=== PATIENT | male | born 1965 | race Caucasian/White ===

== ENCOUNTER 2023-09-10 16:53 | Inpatient (IN) | payer BC ==
[2023-09-10] MEDS: APIXABAN 5 MG TABLET PO SCH (20:00)
[2023-09-10] MEDS ORDERED: ACETAMINOPHEN 325 MG TABLET PO PRN (22:56)
[2023-09-10] MEDS: APIXABAN 5 MG TABLET PO ONE (23:00)
[2023-09-11 06:59] LABS: Absolute Basophils 0.1 K/uL (0-0.5); Absolute Eosinophils 0.2 K/uL (0-0.5); Absolute Lymphocytes (CBC) 1.2 K/uL (0.7-4.9); Absolute Monocytes 0.8 K/uL (0.1-1.3); Absolute Neutrophil 6.3 K/uL (1.8-8.0); Basophils % 0.7 % (0-1.3); Eosinophils % 2.1 % (0-4.4); Hematocrit 35.4 % (39.6-49.0); Hemoglobin 11.7 g/dL (13.6-17.9); Lymphocytes % 14.3 % (15.3-44.8); MCH 28.8 pg (27.0-35.0); MCV 87.2 fL (80-100); MPV 7.6 fL (7.6-11.3); Monocytes % 9.4 % (3.3-12.3); Neutrophils % 73.5 % (41.7-73.7); Platelets 381 thou/uL (152-406); RBC Red Blood Cell Count 4.06 M/uL (4.33-5.43); Red Cell Distribution Width 14.9 % (12.1-15.2)
[2023-09-11 07:10] LABS: Albumin 2.3 g/dL (3.4-5.0); Anion Gap 9.2 mEq/L (5.0-15.0); Magnesium 2.4 mg/dL (1.6-2.4); Potassium 4.2 mEq/L (3.5-5.1); Prealbumin 11.2 mg/dL (20-40)
[2023-09-11] MEDS: DULOXETINE 20 MG CAP PO SCH (10:13)
[2023-09-11] MEDS: TAMSULOSIN 0.4 MG SR CAP PO SCH (10:13)
[2023-09-11] MEDS: CYCLOBENZAPRINE 10 MG TAB PO SCH (10:13)
[2023-09-11] MEDS: GABAPENTIN 300 MG CAP PO SCH (10:13)
[2023-09-11 11:06] LABS: Specific Gravity 1.019 (1.005-1.030); Sqamous Epithelial <5 /HPF (None Seen); Urine Bacteria 20-50 /HPF (<20); Urine Bilirubin NEGATIVE (Negative); Urine Blood Trace (Negative); Urine Clarity Extremely Turbid (Clear); Urine Color Yellow (Yellow); Urine Culture Reflex Order REFLEXED; Urine Glucose NEGATIVE (Negative); Urine Ketones NEGATIVE (Negative); Urine Micro Reflex YN NO BILL MICROSCOPIC; Urine Mucus 1+ /HPF (None Seen); Urine Nitrite NEGATIVE (Negative); Urine Protein NEGATIVE (Negative); Urine Urobilinogen Normal (Normal); Urine WBC 20-50 /HPF (<5)
[2023-09-11] MEDS: CIPROFLOXACIN HCL 500 MG TAB PO SCH (13:02)
[2023-09-11] MEDS: metroNIDAZOLE 500 MG TABLET PO SCH (14:14)
[2023-09-11] MEDS: MAGNESIUM HYDROXIDE 8% 30 ML PO PRN (14:17)
--- NOTE | 2023-09-11 14:17 | CON ---
Date of Consultation: 09/11/2023 Reason: Gallbladder abscess. History Of Present Illness: The patient is a 57-year-old gentleman who underwent a laparoscopic chol ecystectomy at [facility] on August 10 following which he had a respiratory failure and workup revealed a s addle pulmonary emboli. He was admitted back to the hospital and on his incidental finding, there wa s a 7 cm fluid collection in the gallbladder fossa. However, clinically in [facility], they did not feel i t was an abscess because the patient was afebrile, asymptomatic. White count was normal. He was ej ated, however, with IV antibiotics. Currently, his only complaint is nausea. He has no abdominal pa in, no vomiting. No diarrhea or constipation. No blood in his stool. No dysuria, hematuria. No so re throat, runny nose, cough, headaches, or dizziness. No chest pain. Review of Systems: Otherwise unremarkable. Past Medical History: Recent history of saddle emboli, respiratory failure, morbid obesity with a BM I of 59, hypertension, and MS. Past Surgical History: Gastric banding, laparoscopic cholecystectomy with IOC. Allergies: INCLUDE AUGMENTIN. Social History: The patient does not smoke. Does not drink alcohol. Family History: Noncontributory. Physical Examination: Vital Signs: Currently, stable. He is afebrile. Heart rate is 106. General: He is awake, alert, oriented x3. Head and Neck: No evidence of icterus. No neck masses. No JVD. Throat clear. Neck is supple. Chest: Clear. Heart: S1, S2. Abdomen: Soft, nondistended, nontender. Positive bowel sounds. Wounds have healed. Extremities: Neurovascularly intact. Neuro: Nonfocal. Imaging: The patient has not had any imaging done at our hospital. His medical records from [facility] we re reviewed that were present in the chart. His white count is normal with no left shift. His chemi stries are essentially unremarkable except for a low albumin and pre-albumin. Assessment: A 57-year-old gentleman with morbid obesity, multiple sclerosis, hypertension, recent pu lmonary embolus with a fluid collection in his gallbladder fossa. Recommendations: I discussed the case with Dr. Vasquez. I think oral antibiotics should suffice. The patient does have some nausea, which can be treated symptomatically. No need for any surgical inter vention at this time. I believe this fluid to be a postop seroma. I do not believe that this is an active infection in the gallbladder fossa at this time as clinically he appears stable from this poin t. Care discussed with Dr. Vasquez. PAIGE/JOLIE Voice ID: [id number] Report ID: [id number]
[2023-09-11] MEDS: BISACODYL 10 MG RECTAL SUPP PR PRN (15:07)
[2023-09-11] MEDS: NA CHLORIDE 0.9% 1,000 ML IV SCH (18:48)
[2023-09-11] MEDS: ZOLPIDEM TARTRATE 5 MG TABLET PO SCH (20:11)
[2023-09-11] MEDS: APIXABAN 5 MG TABLET PO SCH (20:12)
[2023-09-11] MEDS: CRANBERRY FRUIT EXTRACT 200 MG CAP PO SCH (20:13)
[2023-09-11] MEDS ORDERED: ROZEREM 8 MG PO SCH (21:00)
--- NOTE | 2023-09-11 21:49 | P.HP ---
Certification for Inpatient Patient admitted to: Inpatient With expected LOS: >2 Midnights Practitioner: I am a practitioner with admitting privileges, knowledge of patient current condition, hospital course, and medical plan of care. Services: Services provided to patient in accordance with Admission requirements found in Title 42 Section 412.3 of the Code of Federal Regulations Patient History Date of Service: 09/11/23 Reason for admission: rehab admission after complicated GB surery and saddle pulmonary embolism History of Present Illness: Adin is morbidly obese gm with MS who walks with walker. He had gb surgery at [facility], kept weak, fatigued and had epig pain. HE went back to [facility] er. He was found to have 7 cm abscees in the region of GB. He was given IV antibiotics. He was also found to have saddle embolus. He is on Eliquis po bid. He was not on antibiotics but I started him on two oral antibiotics after consultation with Dr. Gtz. He is stable. Allergies amoxicillin trihydrate [From Augmentin] Allergy (Intermediate, Verified 09/10/23 22:56) Itching/Hives/Rash potassium clavulanate [From Augmentin] Allergy (Intermediate, Verified 09/10/23 22:56) Itching/Hives/Rash Home medications list reviewed: No Home Medications: Acetaminophen [Tylenol] 650 mg PO Q6H 09/11/23 Apixaban [Eliquis] 5 mg PO BID 09/11/23 Apixaban [Eliquis] 10 mg PO BID 09/11/23 Cyclobenzaprine HCl [Flexeril] 5 mg PO TID 09/11/23 Gabapentin 300 mg PO TID 09/11/23 Ramelteon [Rozerem] 8 mg PO BEDTIME 09/11/23 Tamsulosin [Flomax*] 1 tab PO DAILY 09/11/23 - Past Medical/Surgical History Has patient received pneumonia vaccine in the past: No Diabetic: No -: MS -: Acute respiratory failure -: Cholecystectomy abscess -: HTN -: tumor on neck removed -: lap gastric banding(2007) -: cholecystectomy and intraop cholangiogram 08/11/23 - Family History Brother -: Hypertension, Diabetes Mother -: Heart disease, Diabetes Notes: congentital heart issues - Social History Smoking Status: Never smoker Alcohol use: No CD- Drugs: No Caffeine use: No Place of Residence: Home Review of Systems 10-point ROS is otherwise unremarkable General: Weakness Neurological: Weakness (old, ms related) Physical Examination - Vital Signs Temperature: 97.6 F Blood Pressure: 153/67 Pulse: 102 Respirations: 18 Pulse Ox (%): 93 - Physical Exam General: Mild distress, Obese HEENT: Atraumatic, PERRLA, Mucous membr. moist/pink, EOMI, Sclerae nonicteric Neck: Supple, 2+ carotid pulse no bruit, No LAD, Without JVD or thyroid abnormality Respiratory: Clear to auscultation bilaterally, Normal air movement Cardiovascular: Regular rate/rhythm, Normal S1 S2 Gastrointestinal: Normal bowel sounds, No tenderness Musculoskeletal: No tenderness, Tenderness (post op, mild no rebound, no rigidity) Integumentary: No rashes Neurological: Normal gait, Normal speech, Normal strength at 5/5 x4 extr, Normal tone, Normal affect Lymphatics: No axilla or inguinal lymphadenopathy - Studies Laboratory Data (last 24 hrs) 09/11/23 09/11/23 06:37 06:37 WBC 8.60 Hgb 11.7 L Hct 35.4 L Plt Count 381 Sodium 137 Potassium 4.2 BUN 16 Creatinine 1.02 Glucose 106 Magnesium 2.4 Assessment and Plan - Problems (Diagnosis) (1) Abdominal wall abscess at site of surgical wound Current Visit: Yes Status: Acute Plan: start oral abx as above. He may not have much issue here as he does not have much ss but on admission to ER he did have pain an d malaise. (2) Saddle pulmonary embolus Current Visit: Yes Status: Acute Plan: startted ELiquis He should be on it now lifetime as he is an MS patient with limited mobility. (3) Multiple sclerosis Current Visit: Yes Status: Chronic - Advance Directives Does patient have a Living Will: Yes Does patient have a Durable POA for Healthcare: Yes
--- NOTE | 2023-09-12 04:30 | HP ---
Date of Admission: 09/10/2023 Time Of Service: 8 a.m. Chief Complaint: "I have problems breathing, I have clots in the lungs." History Of Present Illness: Mr. De Anda is a 57-year-old right-handed patient with multiple sclerosis for 14 years, who has urinary incontinence and morbid obesity, who presented to the emerge ncy room with shortness of breath and chest pain. The patient previously had a laparoscopic cholecys tectomy at [facility] on 08/10. At that time, he subsequently developed saddle pulmonary embolus and bilat eral pulmonary emboli. He had tachycardia with respiratory failure requiring oxygenation. Also had thrombocytosis. He was felt to have fluid collection, initially thought to be an abscess, but more l ikely a seroma fluid collection, did not require incision and drainage. He was treated with heparin drip and had hemodynamic monitoring. He had a transthoracic echocardiogram. No clot identified. As noted, he had persistent shortness of breath with marked obesity, very elevated BMI to around 60, an d low hemoglobin, hematocrit, and elevated platelet count. As a result of the patient's significant issues of respiration and pulmonary embolus, he has become significantly debilitated and is unable to ambulate and mobilize as he did previously. Therapy identified him requiring maximal assistance for all transfers with 2-person left and performing activities of daily living. As a result, he is dete rmined to be appropriate candidate for inpatient rehabilitation, where he will receive physical, occu pational therapy, and comorbid condition management. Past Medical History: As noted above. Past Surgical History: Laparoscopic adjustable gastric band in 2007, laparoscopic cholecystectomy , and intraoperative cholangiogram on 08/11/2023. Allergies: AMOXICILLIN, POTASSIUM. Medications: Tylenol 650 every 6 hours as needed, Eliquis 5 mg twice daily, Dulcolax 10 mg per rectu m for constipation daily, Cipro 500 mg twice daily, Flexeril 5 mg 3 times daily, Cymbalta 20 mg twice daily, gabapentin 300 mg 3 times daily, Cozaar 50 mg daily, magnesium hydroxide or milk of magnesia 30 mL daily for constipation, Flagyl 500 mg 3 times daily, Senokot-S 2 at bedtime, he is receiving a liter of sodium chloride at 75 cc an hour because of his renal insufficiency, Flomax 0.4 mg daily, an d Ambien 5 mg at bedtime for insomnia. Review of Systems: As noted, he has some issues of constipation, abdominal and chest pain, diffuse weakness in upper and lower extremities, and some symptoms consistent with depression and worried about his ability to ret urn to prior level of functioning. Laboratory Studies: White blood cell count 8.6, hemoglobin 11.7, platelets 381. Sodium 137, potassi um 4.2, chloride 101, carbon dioxide 30, BUN 16, creatinine 1.03, glucose 106, calcium 9.4, magnesium 2.4, albumin 2.3, prealbumin 11.2. Urinalysis shows extreme turbidity, trace blood, 250 esterase, r ed blood cell 5 to 10, white blood cells 20 to 50, bacteria 20 to 50. X-ray/imaging: No new x-rays or imaging. The patient was seen earlier by Dr. Gtz. He did not rec ommend any surgical intervention, but recommended antibiotics and the patient is on antibiotics per Gregory Vasquez, his primary care physician. Current Level Of Functioning: Currently, Mr. De Anda is independent for eating, requires supervision for oral hygiene, maximal assistance for toileting, moderate assistance for bathing. He is independe nt for upper body dressing, maximum assistance for lower body dressing, and donning and doffing footw ear. For rolling mkgp-el-cbrto, [id number]-[id number], and for lying to sitting and sitting side of bed, mod erate assistance. Zhe-wi-afhnw, moderate assistance. Transfer from bed to chair, moderate assistanc e. Toileting, moderate assistance. Ambulating with a rolling walker, covered 7 feet with moderate a ssistance. Physical Examination: Vital Signs: Blood pressure 153/67, pulse of 102, respiratory rate 18, temperature 97.6, oxygen satu ration 93%. Weight 472 pounds, height 6 feet 3 inches, and BMI of 59. General: Mr. De Anda is lying in bed. He is in no acute distress. HEENT: He appears normocephalic, atraumatic. Sclerae anicteric. Oropharynx moist. Neck: Supple. Chest: Clear. Abdomen: He does have extreme obesity with very obese abdomen and arms and legs. Neuro: In terms of his neurological evaluation, no focal cranial nerve deficits. Diffuse weakness i n upper and lower extremities, around 4/5 proximally and distally. Sensation, stocking-glove loss, l ight, touch, temperature. He has intact coordination. Rehab And Medical Assessment And Plan: Mr. De Anda is a 57-year-old patient, admitted to the rehabili tation unit with impairment category 15, pulmonary. His impairment group code is 10.9, other pulmona ry. Etiologic diagnosis, saddle pulmonary embolus. His comorbidities are respiratory failure, decre ased mobility, decreased physical functioning, hypertension, tachycardia, hypoxia, multiple sclerosis , bilateral pulmonary embolus, thrombocytosis, cholecystectomy, and seroma in the abdomen that is not felt to be an abscess. He has mildly low red blood cells, hemoglobin, and hematocrit. Plan: 1.He will have physical and occupational therapy for 3 hours a day, 5 of 7 days. 2.Continue with anticoagulation for pulmonary embolus and clots in legs. 3.We will continue aggressive management of his hypertension. Continue with IV fluids for his renal insufficiency. Continue with antibiotics per Dr. Vasquez and Dr. Gtz, which is the Cipro and Flagyl . Continue with Flexeril for muscle spasms. Again, the Eliquis 5 mg twice daily for his clot and st roke risk reduction, gabapentin 300 mg twice daily for neuropathic pain, duloxetine 20 mg twice daily for his mood stabilization and for neuropathic pain, Flexeril for muscle spasms, Senokot-S for const ipation along with milk of magnesia. Comorbidities That Are Impacting Rehabilitation: Mr. De Anda has extreme obesity making it difficult for him to ambulate very easily. He does have significant shortness of breath as he tries to ambulat e given the pulmonary saddle embolus. He will be given some fluids gently to help with his hydration . As he stands up, he has significant drop in blood pressure and elevated heart rate. While standin g, he had a blood pressure drop to 96/64 and pulse of 118. Rehab Specific Plan: Mr. De Anda will have physical and occupational therapy for 3 hours a day, 5 of 7 days, to help him transfer from his bed to chair to a wheelchair to a walker and mobilize around th e unit, more than household distances at least 250 feet, able to go into the walk-in shower and the t ub shower to be able to perform toileting and showering. In addition, he will have leather grader apy to help him with dressing, upper and lower body, donning and doffing footwear, and performing all activities of daily living. If need be, speech therapy will help with cognition, good safety awaren ess, and some decision-making and medication management. Mr. De Anda has good understanding of the process of admission to the inpatient rehabilitation unit an d how he will receive physical, occupational, and if need be speech therapy. He will have 24 hours a day, 7 days a week skilled rehabilitation nursing, daily physician evaluation and management, and so [facility] evaluation and management for discharge planning, home equipment, medications and physi josefa followup. If need be, which he already has, will have continued help by Hospitalist, Dr. Vasquez and surgeon Dr. Gtz. Barriers To Discharge: Currently with extreme obesity, it may be difficult for him to be able to amb ulate and function independently and may have to be sent to a [facility] prior to him going home . Length Of Stay: About 2 weeks. Disposition: Home with family and Home Health to continue. Prognosis: Good despite his condition. Rehabilitation Specific Goals: 1.Become independent with upper and lower body dressing, donning and doffing of footwear. 2.Independently perform all activities of daily living. 3.Independently ambulate 250 feet with a rolling walker. 4.Independently propel a wheelchair 250 feet. 5.Independently go up and down 10 steps with bilateral handrails. 6.Independently perform cognitive functioning. Mr. De Anda has a good understanding of the process of admission and as noted, his goals were explaine d and he is in agreement. By signing this document, I acknowledge I personally performed a full physical examination on Mr. Taisha sanchez no later than 24 hours after his admission to the inpatient rehabilitation unit and determined th at he is able to tolerate the above course of treatment at an intensive level for reasonable period o f time. A detailed individualized plan of care for him will be completed by hospital day 4 based on the preadmission screen, history and phy sical, and therapy evaluations. TERRA/JOLIE Voice ID: [id number]
[2023-09-12] MEDS: APIXABAN 5 MG TABLET PO SCH (08:13)
[2023-09-12] MEDS: LOSARTAN POTASSIUM 50 MG TABLET PO SCH (08:16)
[2023-09-12] MEDS: GABAPENTIN 300 MG CAP PO SCH (20:45)
[2023-09-12] MEDS: DOCUSATE NA/SENNA CONC 1 TAB PO PRN (20:45)
[2023-09-12] MEDS: TAMSULOSIN 0.4 MG SR CAP PO SCH (20:45)
[2023-09-12] MEDS ORDERED: POLYETHYL GLY 3350 17 GM/DOSE PO PRN (21:46)
--- NOTE | 2023-09-12 21:48 | P.PN ---
Subjective Date of Service: 09/12/23 Chief Complaint: rehab admission after complicated GB surery and saddle pulmonary embolism Subjective: Improving ADRIANA IS STABLE HE WANTS TO EAT EGGS AND FRIED POTATOES. I WAS ASKING HIM TO EAT BETTER. Review of Systems 10-point ROS is otherwise unremarkable Physical Examination - Vital Signs Temperature: 97.4 F Blood Pressure: 110/57 Pulse: 102 Respirations: 18 Pulse Ox (%): 97 - Physical Exam General: Mild distress, Obese HEENT: Atraumatic, PERRLA, EOMI Neck: Supple, JVD not distended Respiratory: Clear to auscultation bilaterally, Normal air movement Cardiovascular: Regular rate/rhythm, Normal S1 S2 Gastrointestinal: Normal bowel sounds, No tenderness Musculoskeletal: No tenderness Integumentary: No rashes Neurological: Normal speech, Normal tone, Normal affect Lymphatics: No axilla or inguinal lymphadenopathy - Studies Medications List Reviewed: Yes Assessment And Plan - Current Problems (Diagnosis) (1) Abdominal wall abscess at site of surgical wound Current Visit: Yes Status: Acute Plan: start oral abx as above. He may not have much issue here as he does not have much ss but on admission to ER he did have pain an d malaise. ORAL ABX STABLE. CONT PT (2) Saddle pulmonary embolus Current Visit: Yes Status: Acute Plan: startted ELiquis He should be on it now lifetime as he is an MS patient with limited mobility. (3) Multiple sclerosis Current Visit: Yes Status: Chronic
--- NOTE | 2023-09-12 23:32 | PN ---
Date of Progress Note: 09/12/2023 Time Of Service: 1:25 p.m. Subjective: Mr. De Anda is in the gym, getting ready to do a [id number]-jj-[id number] and attempt at going up and down steps. He has no significant complaints. Says his pain in the feet is still there and slightl y worse and that is related to his multiple sclerosis and peripheral neuropathy. Objective: Again, some pain in the feet, especially as he tries to stand and mobilize and of course, some mild shortness of breath. Otherwise, he is normocephalic, atraumatic. Sclerae anicteric. Annie pharynx pink and moist. He does have stasis changes in the mid legs bilaterally downwards and mild e federico as noted. Physical Examination: Vital Signs: Blood pressure 110/57, pulse of 102, respiratory rate 18, temperature 97.4, oxygen satu ration 97%. General: Again, Mr. De Anda is getting ready to stand and ambulate. HEENT: He is normocephalic, atraumatic. Sclerae anicteric. Oropharynx moist. Neck: Supple. Chest: Clear. He has 2 L of oxygen on nasal cannula. Extremities: Mild edema in the lower extremities and also some in the upper extremities. It is note d that the patient does have extreme obesity with BMI of 59. He has diffuse weakness in the legs, bu t can do a hyf-ch-jhuap with just min assist. Laboratory Studies: White blood cell count 8.6, hemoglobin 11.7, platelets 381. Sodium 137, potassi um 4.2, chloride 102, carbon dioxide 30, BUN 16, creatinine 1.02, glucose 106, calcium 9.4, magnesium 2.4, albumin 2.3, prealbumin 11.2. Urinalysis, extreme turbidity, trace blood, 250 esterase, red bl ood cells 5 to 10, white blood cells 20 to 50, bacteria 20 to 50. His cultures did grow greater than 100,000 colony-forming units of 4+ gram-negative rods with sensitivities pending. Medications: Tylenol 650 mg every 6 hours as needed, Eliquis 5 mg twice daily, Cipro 500 mg twice da elizabeth, Flexeril 5 mg 3 times daily, duloxetine 20 mg twice daily, gabapentin 600 mg twice daily, Cozaar 50 mg daily, milk of magnesia 30 mg daily for constipation, Flagyl 500 mg 3 times daily, midodrine 5 mg daily, Senokot-S 2 at bedtime, Flomax 0.4 mg twice daily, zolpidem 5 mg at bedtime. X-ray/imaging: No new x-rays or imaging. Consultations: He is followed by Dr. Vasquez and Dr. Gtz while in hospital. Progress Made With Physical And Occupational Therapy: Today with physical therapy, he completed bed mobilization, turning with minimum assistance using bed rails, moderate assistance for supine to sit, and moderate assistance for sit to supine transitions. He ambulated 2 feet and 5 feet with maximum assistance. He did do wheelchair mobilization. Propelled his wheelchair 50 feet twice with minimum assistance. He did manage some training, completed initiating steps, able to fern picker his left foot a nd place it on a 4-inch step 12 times. He did attempt to climb steps twice with maximum assistance, but was unable to do so. With occupational therapy, independent with aydhlz-xm-hat transfers, he did it twice, he completed 10 times and 5 times, 1 static standing for 15 seconds each. Mr. De Anda is beginning to make some progress with his physical and occupational therapy, although [facility] has a long way to go. Assessment: Mr. De Anda is a 57-year-old patient with multiple sclerosis, who was admitted with sheila grayson pulmonary embolus. He also has peripheral neuropathy with pain in the legs and extreme obesity. H renuka has depression. He is followed for a fluid collection in the abdomen which is not felt to be an ab scess, but yet he is on 2 antibiotics. He does have tachycardia, hypoxia, thrombocytosis, cholecyste ctomy, and a seroma in the abdomen. Plan: 1.He will continue with physical and occupational therapy for 3 hours a day, 5 of 7 days. 2.He has multiple comorbid condition medications which are continuing for his peripheral neuropathy, which have been increased because of pain in the feet. For his multiple sclerosis, he takes medicat ion every 6 months that is not due until October, has duloxetine for depression, Flexeril for muscl e spasms, Senokot for constipation, milk of mag as well for that, Eliquis for DVT prophylaxis. Comorbidities That Are Impacting Rehabilitation: He has difficulty with significant weakness in the lower extremities, did have elevated heart rate, and again he is on multiple antibiotics, and did hav e some episodes of drop in his blood pressure earlier with systolic down to 90 and pulse up to 118. He did receive a liter of fluids which did help and will likely have another liter as needed and oral hydration is encouraged. TERRA/JOLIE Voice ID: [id number] Report ID: [id number]
[2023-09-13] MEDS: DOCUSATE NA/SENNA CONC 1 TAB PO SCH (09:20)
[2023-09-13] MEDS: MIDODRINE HCL 5 MG TABLET PO SCH (09:21)
[2023-09-13] MEDS: JUVEN PACKET PO SCH (20:00)
--- NOTE | 2023-09-13 22:15 | PN ---
Date of Progress Note: 09/13/2023 Time Of Service: 1:40 p.m. Subjective: Mr. De Anda is back in his bed after being in the gym with therapy. He is doing much bet ter today, transferring better, mobilizing better, and using lower extremities better. He still has some shortness of breath requiring oxygen via nasal cannula. Review of Systems: No fevers, chills, nausea, vomiting, myalgias, arthralgias. Pain in the feet has improved with impro joyce dosage of gabapentin, but pain is still significant when standing and trying to ambulate. Otherw ise, no other complaints in terms of review of systems. Physical Examination: Vital Signs: Blood pressure orthostatics lying 122/62, pulse of 105 while sitting, blood pressure 11 4/58, pulse of 104. Lungs: The patient was less symptomatic, but still felt some shortness of breath disease as he was s itting up. Extremities: Otherwise, he has no focal upper and lower extremity weakness. He does have a stasis c hanges in the lower extremities. Of course, extreme obesity. He has BMI of 59. Laboratory Studies: No new laboratory studies. X-ray/imaging: No new x-rays or imaging. Medications: Medications have been reviewed. He does have the Tremaine 1 packet twice daily for increa sing his protein intake. There is Senokot S for constipation. Midodrine given during the day for pr essure support, which did improve him from a systolic around 96 prior to taking it to the systolic as noted above around 114 and is on changing position from lying to sitting. Progress Made With Physical And Occupational Therapy: Today with physical therapy, he was able to am bulate 15 feet, 45 feet, and 30 feet with a Rollator with minimum assistance in the afternoon. Then, completed another 75 feet twice with contact guard assistance with a wheelchair. He did, however, t lucia while going from sitting to standing position where as sitting blood pressure 128/82, pulse rate up to 115, standing after a minute blood pressure did drop to 95/65 and heart rate to 127. With his occupational therapy, independent with supine to sit and transfer to bed, did [id number] transfe r, edge of bed and wheelchair with standby assistance. Bathing, supervision, did have a bariatric ch air as he did his showering, did have 3 L of oxygen via nasal cannula. Independent with upper body d ressing and oral care. Mr. De Anda is beginning to make better progress with physical therapy given all the restrictions as n oted. He of course has a saddle pulmonary embolus and some shortness of breath requiring oxygenation and some decrease in the ability to a withstand exertion. He is using incentive spirometry at least up to about 2-1/2 to 3 L now. Assessment: Mr. De Anda is a 57-year-old patient admitted to the rehabilitation unit with saddle pulm onary embolus. Again, he is making significant improvement. He has multiple sclerosis and periphera l neuropathy with pain in the legs and of course his extreme obesity and depression. He has had a ch olecystectomy and a seroma in the abdomen. He is still on antibiotics per his primary care physician , Dr. Vasquez and Dr. Gtz, the surgeon. Plan: 1.Continue with physical and occupational therapy for 3 hours a day, 5 of 7 days. 2.All his comorbid condition medications are continued including the Senokot for constipation along with Milk of Magnesia, Eliquis for DVT prophylaxis, Flexeril for muscle spasms. He continues his dul oxetine for depression, ciprofloxacin twice daily along with Flagyl or the potential infection, which he is doing well, Flomax for urinary retention, midodrine for his blood pressure support while ambul ating with consideration of increased doses from 5 mg daily to 10 mg a day as he does his therapy. Comorbidities That Are Impacting Rehabilitation: The orthostatic hypotension and pain in the lower e xtremities are somewhat limiting and again may have to adjust the midodrine dosage in the morning so that he is able to withstand the [id number] transfers without significant orthostatic changes. LB/MODL Voice ID: [id number] Report ID: [id number]
--- NOTE | 2023-09-13 22:23 | P.PN ---
Subjective Date of Service: 09/13/23 Chief Complaint: rehab admission after complicated GB surery and saddle pulmonary embolism Subjective: Improving ADRIANA IS STABLE HE WANTS TO EAT EGGS AND FRIED POTATOES. I WAS ASKING HIM TO EAT BETTER. HE IS STABLE HAS NO PAIN Review of Systems 10-point ROS is otherwise unremarkable General: Weakness Physical Examination - Vital Signs Temperature: 97.8 F Blood Pressure: 128/61 Pulse: 103 Respirations: 18 Pulse Ox (%): 95 - Physical Exam General: Oriented x3, Mild distress HEENT: Atraumatic, PERRLA, EOMI Neck: Supple, JVD not distended Respiratory: Clear to auscultation bilaterally, Normal air movement Cardiovascular: Regular rate/rhythm, Normal S1 S2 Gastrointestinal: Normal bowel sounds, No tenderness Musculoskeletal: No tenderness Integumentary: No rashes Neurological: Normal speech, Normal tone, Normal affect Lymphatics: No axilla or inguinal lymphadenopathy - Studies Microbiology Data (last 24 hrs): 09/11/23 10:40 Clean Catch Urine [place] Count - Final >100,000 CFU/ML. 09/11/23 10:40 Clean Catch Urine - Final Escherichia Coli Medications List Reviewed: Yes Assessment And Plan - Current Problems (Diagnosis) (1) Abdominal wall abscess at site of surgical wound Current Visit: Yes Status: Acute Plan: start oral abx as above. He may not have much issue here as he does not have much ss but on admission to ER he did have pain an d malaise. ORAL ABX STABLE. CONT PT (2) Saddle pulmonary embolus Current Visit: Yes Status: Acute Plan: startted ELiquis He should be on it now lifetime as he is an MS patient with limited mobility. CONTINEU ELIQUIS CONT OT AND PT. (3) Multiple sclerosis Current Visit: Yes Status: Chronic
--- NOTE | 2023-09-14 13:50 | P.RH.PN ---
Estimated Length of Stay: 16 Expected Discharge Date: 09/27/23 Discharge Disposition Plan: Home Family Support: Yes Prison Goal: Mobility, Transfers, Self Care Vital Signs: Last Vital Signs Temp 97.2 F 09/14/23 08:00 Pulse 102 H 09/14/23 10:30 Resp 18 09/14/23 08:00 BP 125/62 09/14/23 10:30 Pulse Ox 95 09/14/23 10:30 Laboratory: Laboratory Last Values WBC 8.60 thou/uL (4.3-10.9) 09/11/23 06:37 RBC 4.06 M/uL (4.33-5.43) L 09/11/23 06:37 Hgb 11.7 g/dL (13.6-17.9) L 09/11/23 06:37 Hct 35.4 % (39.6-49.0) L 09/11/23 06:37 MCV 87.2 fL (80-100) 09/11/23 06:37 MCH 28.8 pg (27.0-35.0) 09/11/23 06:37 MCHC 33.0 g/dL (32.0-36.0) 09/11/23 06:37 RDW 14.9 % (12.1-15.2) 09/11/23 06:37 Plt Count 381 thou/uL (152-406) 09/11/23 06:37 MPV 7.6 fL (7.6-11.3) 09/11/23 06:37 Neutrophils % 73.5 % (41.7-73.7) 09/11/23 06:37 Lymphocytes % 14.3 % (15.3-44.8) L 09/11/23 06:37 Monocytes % 9.4 % (3.3-12.3) 09/11/23 06:37 Eosinophils % 2.1 % (0-4.4) 09/11/23 06:37 Basophils % 0.7 % (0-1.3) 09/11/23 06:37 Absolute Neutrophils 6.3 K/uL (1.8-8.0) 09/11/23 06:37 Absolute Lymphocytes 1.2 K/uL (0.7-4.9) 09/11/23 06:37 Absolute Monocytes 0.8 K/uL (0.1-1.3) 09/11/23 06:37 Absolute Eosinophils 0.2 K/uL (0-0.5) 09/11/23 06:37 Absolute Basophils 0.1 K/uL (0-0.5) 09/11/23 06:37 Sodium 137 mEq/L (136-145) 09/11/23 06:37 Potassium 4.2 mEq/L (3.5-5.1) 09/11/23 06:37 Chloride 102 mEq/L (98-107) 09/11/23 06:37 Carbon Dioxide 30 mEq/L (21-32) 09/11/23 06:37 Anion Gap 9.2 mEq/L (5.0-15.0) 09/11/23 06:37 BUN 16 mg/dL (7-18) 09/11/23 06:37 Creatinine 1.02 mg/dL (0.70-1.30) 09/11/23 06:37 Est GFR (CKD-EPI) 86 ml/min (=/>90) L 09/11/23 06:37 Glucose 106 mg/dL (74-106) 09/11/23 06:37 Calcium 9.4 mg/dL (8.5-10.1) 09/11/23 06:37 Magnesium 2.4 mg/dL (1.6-2.4) 09/11/23 06:37 Albumin 2.3 g/dL (3.4-5.0) L 09/11/23 06:37 Prealbumin 11.2 mg/dL (20-40) L 09/11/23 06:37 Urine Color Yellow (Yellow) 09/11/23 10:40 Urine Clarity Extremely turbid (Clear) H 09/11/23 10:40 Urine pH 6.0 (5.0-7.0) 09/11/23 10:40 Ur Specific [place] 1.019 (1.005-1.030) 09/11/23 10:40 Glucose (UA)(Auto) Negative (Negative) 09/11/23 10:40 Urine Ketones Negative (Negative) 09/11/23 10:40 Urine Blood Trace (Negative) H 09/11/23 10:40 Urine Nitrite Negative (Negative) 09/11/23 10:40 Urine Bilirubin Negative (Negative) 07/23/24 10:40 Urine Urobilinogen Normal (Normal) 09/11/23 10:40 Ur Leukocyte Esterase 250 [place]/uL (Negative) H 09/11/23 10:40 Urine RBC 5-10 /HPF (None Seen) H 09/11/23 10:40 Urine WBC 20-50 /HPF (<5) H 09/11/23 10:40 Ur Squamous Epith Cells <5 /HPF (None Seen) 09/11/23 10:40 Urine Bacteria 20-50 /HPF (<20) H 09/11/23 10:40 Urine Mucus 1+ /HPF (None Seen) 09/11/23 10:40 Urine Culture Reflexed Reflexed 09/11/23 10:40 Urine Total Protein Negative (Negative) 09/11/23 10:40 Weight: 472 lb Wound Present: No Closed Surgical Incision Present: Yes Negative Pressure Wound Therapy Present: No Physician Update: Making fair progress with PT and OT. Pain to the feet improved moderately. Still need O2, 2L via NC. Stage II on buttocks. Cholecystectomy site has good hemostasis. CGA to get out of bed, min assist to get in bed. Walked 45' with RW. SBA for transfers, upper body dressing. Standing 116/40. Summary: Patient's care plan and intermission coordinator goals have been reviewed and revised as necessary. Please see the Rehabilitation Signature page for all necessary signatures.
--- NOTE | 2023-09-14 16:10 | P.PN ---
Subjective Date of Service: 09/14/23 Chief Complaint: rehab admission after complicated GB surery and saddle pulmonary embolism Subjective: Improving ADRIANA IS STABLE HE WANTS TO EAT EGGS AND FRIED POTATOES. I WAS ASKING HIM TO EAT BETTER. HE IS STABLE HAS NO PAIN Review of Systems General: Weakness Physical Examination - Vital Signs Temperature: 97.2 F Blood Pressure: 125/62 Pulse: 102 Respirations: 18 Pulse Ox (%): 95 - Physical Exam General: Mild distress, Obese HEENT: Atraumatic, PERRLA, EOMI Neck: Supple, JVD not distended Respiratory: Clear to auscultation bilaterally, Normal air movement Cardiovascular: Regular rate/rhythm, Normal S1 S2 Gastrointestinal: Normal bowel sounds, No tenderness Musculoskeletal: No tenderness Integumentary: No rashes Neurological: Normal speech, Normal tone, Normal affect Lymphatics: No axilla or inguinal lymphadenopathy - Studies Medications List Reviewed: Yes Assessment And Plan - Current Problems (Diagnosis) (1) Abdominal wall abscess at site of surgical wound Current Visit: Yes Status: Acute Plan: start oral abx as above. He may not have much issue here as he does not have much ss but on admission to ER he did have pain an d malaise. ORAL ABX STABLE. CONT PT (2) Saddle pulmonary embolus Current Visit: Yes Status: Acute Plan: startted ELiquis He should be on it now lifetime as he is an MS patient with limited mobility. CONTINEU ELIQUIS CONT OT AND PT. (3) Multiple sclerosis Current Visit: Yes Status: Chronic (4) Abnormal urinalysis Current Visit: Yes Status: Acute Plan: HE HAS NO SS DO ST CATH ASYMPTOMATIC UA DOES NOT NEED RX
[2023-09-14 17:30] LABS: Specific Gravity 1.017 (1.005-1.030); Sqamous Epithelial <5 /HPF (None Seen); Urine Bacteria >50 /HPF (<20); Urine Bilirubin NEGATIVE (Negative); Urine Blood Negative (Negative); Urine Clarity Turbid (Clear); Urine Color Yellow (Yellow); Urine Culture Reflex Order NOT NEEDED; Urine Glucose NEGATIVE (Negative); Urine Ketones NEGATIVE (Negative); Urine Microscopic Reflex YN ORDER UMIC; Urine Mucus Slight /HPF (None Seen); Urine Nitrite 2+ (Negative); Urine Protein NEGATIVE (Negative); Urine RBC <5 /HPF (None Seen); Urine Urobilinogen Normal (Normal); Urine pH 6.5 (5.0-7.0)
[2023-09-14] MEDS: LOSARTAN POTASSIUM 50 MG TABLET PO SCH (21:36)
[2023-09-15] MEDS: MIDODRINE HCL 5 MG TABLET PO SCH (09:16)
--- NOTE | 2023-09-15 14:05 | P.PN ---
Subjective Date of Service: 09/15/23 Chief Complaint: rehab admission after complicated GB surery and saddle pulmonary embolism Subjective: Improving ADRIANA IS STABLE HE WANTS TO EAT EGGS AND FRIED POTATOES. I WAS ASKING HIM TO EAT BETTER. HE IS STABLE HAS NO PAIN HIS BP IS LOW NORMAL I WILL STOP LOSARTAN. Review of Systems 10-point ROS is otherwise unremarkable General: Weakness Physical Examination - Vital Signs Temperature: 97.1 F Blood Pressure: 135/60 Pulse: 108 Respirations: 18 Pulse Ox (%): 93 - Physical Exam General: Oriented x3, Mild distress, Obese HEENT: Atraumatic, PERRLA, EOMI Neck: Supple, JVD not distended Respiratory: Clear to auscultation bilaterally, Normal air movement Cardiovascular: Regular rate/rhythm, Normal S1 S2 Gastrointestinal: Normal bowel sounds, No tenderness Musculoskeletal: No tenderness Integumentary: No rashes Neurological: Normal speech, Normal tone, Normal affect Lymphatics: No axilla or inguinal lymphadenopathy - Studies Medications List Reviewed: Yes Assessment And Plan - Current Problems (Diagnosis) (1) Abdominal wall abscess at site of surgical wound Current Visit: Yes Status: Acute Plan: start oral abx as above. He may not have much issue here as he does not have much ss but on admission to ER he did have pain an d malaise. ORAL ABX STABLE. CONT PT (2) Saddle pulmonary embolus Current Visit: Yes Status: Acute Plan: startted ELiquis He should be on it now lifetime as he is an MS patient with limited mobility. CONTINEU ELIQUIS CONT OT AND PT. (3) Multiple sclerosis Current Visit: Yes Status: Chronic (4) Abnormal urinalysis Current Visit: Yes Status: Acute Plan: HE HAS NO SS DO ST CATH ASYMPTOMATIC UA DOES NOT NEED RX (5) Orthostatic hypotension Current Visit: Yes Status: Chronic Plan: WITH MS THIS IS IS A COMMON ISSUE. WE WILL STOP LOSARTAN BP IS LOW DOWN TO82 ON STANDING. SUPINE HTN MAY BECOME AN ISSUE WITH PROMATINE.
[2023-09-15] MEDS: SODIUM CHLORIDE 0.9% 10ML INJ IV SCH (19:53)
--- NOTE | 2023-09-16 22:06 | P.PN ---
Subjective Date of Service: 09/16/23 Chief Complaint: rehab admission after complicated GB surery and saddle pulmonary embolism Subjective: Improving ADRIANA IS STABLE HE WANTS TO EAT EGGS AND FRIED POTATOES. I WAS ASKING HIM TO EAT BETTER. HE IS STABLE HAS NO PAIN HIS BP IS LOW NORMAL I WILL STOP LOSARTAN. HE HAS NO COMPLAINTS NO PAIN NO FEVER NO UTI SS. Review of Systems 10-point ROS is otherwise unremarkable General: Weakness Physical Examination - Vital Signs Temperature: 97.7 F Blood Pressure: 132/66 Pulse: 92 Respirations: 16 Pulse Ox (%): 95 - Physical Exam General: In no apparent distress, Mild distress, Obese HEENT: Atraumatic, PERRLA, EOMI Neck: Supple, JVD not distended Respiratory: Clear to auscultation bilaterally, Normal air movement Cardiovascular: Regular rate/rhythm, Normal S1 S2 Gastrointestinal: Normal bowel sounds, No tenderness Musculoskeletal: No tenderness Integumentary: No rashes Neurological: Normal speech, Normal tone, Normal affect Lymphatics: No axilla or inguinal lymphadenopathy - Studies Medications List Reviewed: Yes Assessment And Plan - Current Problems (Diagnosis) (1) Abdominal wall abscess at site of surgical wound Current Visit: Yes Status: Acute Plan: start oral abx as above. He may not have much issue here as he does not have much ss but on admission to ER he did have pain an d malaise. ORAL ABX STABLE. CONT PT (2) Saddle pulmonary embolus Current Visit: Yes Status: Acute Plan: startted ELiquis He should be on it now lifetime as he is an MS patient with limited mobility. CONTINEU ELIQUIS CONT OT AND PT. (3) Multiple sclerosis Current Visit: Yes Status: Chronic (4) Abnormal urinalysis Current Visit: Yes Status: Acute Plan: HE HAS NO SS DO ST CATH ASYMPTOMATIC UA DOES NOT NEED RX HE HAS NO SYMPTOMS AND SO PER GUIDELINE WE SHOULD AVOID ANY MORE ANTIBIOTICS. HE IS ALREADY ON TWO ANTIBIOTICS FOR GALL BLADDER FOSSA POTENTIAL ABSCESS. (5) Orthostatic hypotension Current Visit: Yes Status: Chronic Plan: WITH MS THIS IS IS A COMMON ISSUE. WE WILL STOP LOSARTAN BP IS LOW DOWN TO82 ON STANDING. SUPINE HTN MAY BECOME AN ISSUE WITH PROMATINE.
--- NOTE | 2023-09-17 20:22 | PN ---
Date of Progress Note: 09/17/2023 Time Of Service: 1:10 p.m. Subjective: Mr. De Anda is resting in bed in between therapy sessions. He did note some nausea and v omiting earlier and loose stools up to last night. He is completing multiple antibiotics which may b e for the etiology of his loose stools. In any event, loose stools seem to have subsided. He did re port feeling better about his transfers from bed to side of the bed and to a chair. Review of Systems: Again, some nausea, vomiting, and diarrhea, which is improved otherwise. No significant myalgias, ar thralgias, pain in the feet not reported today. Physical Examination: Vital Signs: Blood pressure 128/77, pulse up to 102, respiratory rate 18, temperature 97. He did no te in the shower he did become somewhat fatigued earlier and said the blood pressure dropped signific antly. However, the orthostatics do not show significant drop while lying 134/63, sitting 125/62, an d standing 116/40. Otherwise, again, Mr. De Anda does have stasis changes in the legs with some edema noted and these are peripheral neuropathy related to his multiple sclerosis and peripheral affects. Laboratory Studies: No new laboratory studies. X-ray/imaging: No new x-rays or imaging. Medications: Medications have been reviewed and are unchanged. He is followed by his primary care p lulú, Dr. Vasquez, and his plan is to switch to oral antibiotics. Continue the Eliquis for DVT pro phylaxis and indicated that he may do a cardiac catheterization at some point after discharge. He di d stop losartan as he has had low blood pressure and had some potential issues of higher blood pressu re when lying due to midodrine. Progress Made With Physical And Occupational Therapy: Regarding his occupational therapy, he was ind ependent with a supine to edge of bed transfer and wheelchair transfer supervision, independent with [id number] transfer. Bathing was independent. Again noted after his shower, blood pressure 128/ 77, heart rate 107, oxygen saturation 93%. Did work on arm strength with pushups to improve his tric eps activity. He did want to remain in bed again after his shower. He felt significantly weak. Mr. De Anda is making fair progress overall with his physical and occupational therapy, still limited somewhat as of course, his BMI is 59, consistent with extreme obesity in addition to his multiple scl erosis and peripheral neuropathy. Assessment: Mr. De Anda is a 57-year-old patient in the rehabilitation unit with saddle pulmonary emb olus which is improving. There is a fluid collection in the abdominal area, not felt to be an absces s, but he is on multiple antibiotics per Dr. Vasquez, his primary care physician. Multiple sclerosis i s stable. He does have peripheral neuropathy associated with that, also stable. Plan: Continue with physical and occupational therapy 3 hours a day, 5 of 7 days. Continue with com orbid condition medications including for DVT prophylaxis and his low blood pressure. Again, pressur e support, stopping antihypertensive medications per Dr. Vasquez. He is switched over to oral antibiot ics and has Flomax for urinary retention and for insomnia. Comorbidities That Are Impacting Rehabilitation: As noted above, the patient is morbidly obese and m aking it difficult for him to thrive and ambulate without significant risk of loss of balance and fal ls. Despite that, he is doing better with his transfers, mobilization, ambulation, and ADLs. LB/MODL Voice ID: [id number] Report ID: [id number]
--- NOTE | 2023-09-17 21:57 | P.PN ---
Subjective Date of Service: 09/17/23 Chief Complaint: rehab admission after complicated GB surery and saddle pulmonary embolism Subjective: C/O voiced ADRIANA IS STABLE HE WANTS TO EAT EGGS AND FRIED POTATOES. I WAS ASKING HIM TO EAT BETTER. NAUSEA TODAY NO UTI, NO BURNING , NO FEVER. Review of Systems 10-point ROS is otherwise unremarkable General: Weakness, As per HPI Physical Examination - Vital Signs Temperature: 97.6 F Blood Pressure: 143/72 Pulse: 97 Respirations: 18 Pulse Ox (%): 99 - Physical Exam General: Oriented x3, Mild distress, Obese HEENT: Atraumatic, PERRLA, EOMI Neck: Supple, JVD not distended Respiratory: Clear to auscultation bilaterally, Normal air movement Cardiovascular: Regular rate/rhythm, Normal S1 S2 Gastrointestinal: Normal bowel sounds, No tenderness Musculoskeletal: No tenderness Integumentary: No rashes Neurological: Normal speech, Normal tone, Normal affect Lymphatics: No axilla or inguinal lymphadenopathy - Studies Medications List Reviewed: Yes Assessment And Plan - Current Problems (Diagnosis) (1) Abdominal wall abscess at site of surgical wound Current Visit: Yes Status: Acute Plan: start oral abx as above. He may not have much issue here as he does not have much ss but on admission to ER he did have pain an d malaise. ORAL ABX STABLE. CONT PT (2) Saddle pulmonary embolus Current Visit: Yes Status: Acute Plan: startted ELiquis He should be on it now lifetime as he is an MS patient with limited mobility. CONTINEU ELIQUIS CONT OT AND PT. (3) Multiple sclerosis Current Visit: Yes Status: Chronic (4) Abnormal urinalysis Current Visit: Yes Status: Acute Plan: HE HAS NO SS DO ST CATH ASYMPTOMATIC UA DOES NOT NEED RX HE HAS NO SYMPTOMS AND SO PER GUIDELINE WE SHOULD AVOID ANY MORE ANTIBIOTICS. HE IS ALREADY ON TWO ANTIBIOTICS FOR GALL BLADDER FOSSA POTENTIAL ABSCESS. (5) Orthostatic hypotension Current Visit: Yes Status: Chronic Plan: WITH MS THIS IS IS A COMMON ISSUE. WE WILL STOP LOSARTAN BP IS LOW DOWN TO82 ON STANDING. SUPINE HTN MAY BECOME AN ISSUE WITH PROMATINE. (6) Nausea Current Visit: Yes Status: Acute Plan: AM NAUSEA STOP SENNA WATCH SS.
[2023-09-18] MEDS: ONDANSETRON 4 MG (ODT) TAB PO PRN (14:22)
--- NOTE | 2023-09-18 21:21 | P.PN ---
Subjective Date of Service: 09/18/23 Chief Complaint: DOING BETTER. NO NAUSEA TODAY. Subjective: Improving ADRIANA IS STABLE NO NAUSEA TODAY NO UTI, NO BURNING , NO FEVER. Review of Systems 10-point ROS is otherwise unremarkable Physical Examination - Vital Signs Temperature: 97.8 F Blood Pressure: 101/57 Pulse: 100 Respirations: 18 Pulse Ox (%): 94 - Physical Exam General: Acute distress, Mild distress, Obese HEENT: Atraumatic, PERRLA, EOMI Neck: Supple, JVD not distended Respiratory: Clear to auscultation bilaterally, Normal air movement Cardiovascular: Regular rate/rhythm, Normal S1 S2 Gastrointestinal: Normal bowel sounds, No tenderness Musculoskeletal: No tenderness Integumentary: No rashes Neurological: Normal speech, Normal tone, Normal affect Lymphatics: No axilla or inguinal lymphadenopathy - Studies Medications List Reviewed: Yes Assessment And Plan - Current Problems (Diagnosis) (1) Abdominal wall abscess at site of surgical wound Current Visit: Yes Status: Acute Plan: start oral abx as above. He may not have much issue here as he does not have much ss but on admission to ER he did have pain an d malaise. ORAL ABX STABLE. CONT PT (2) Saddle pulmonary embolus Current Visit: Yes Status: Acute Plan: startted ELiquis He should be on it now lifetime as he is an MS patient with limited mobility. CONTINEU ELIQUIS CONT OT AND PT. (3) Multiple sclerosis Current Visit: Yes Status: Chronic (4) Abnormal urinalysis Current Visit: Yes Status: Acute Plan: HE HAS NO SS DO ST CATH ASYMPTOMATIC UA DOES NOT NEED RX HE HAS NO SYMPTOMS AND SO PER GUIDELINE WE SHOULD AVOID ANY MORE ANTIBIOTICS. HE IS ALREADY ON TWO ANTIBIOTICS FOR GALL BLADDER FOSSA POTENTIAL ABSCESS. (5) Orthostatic hypotension Current Visit: Yes Status: Chronic Plan: WITH MS THIS IS IS A COMMON ISSUE. WE WILL STOP LOSARTAN BP IS LOW DOWN TO82 ON STANDING. SUPINE HTN MAY BECOME AN ISSUE WITH PROMATINE. (6) Nausea Current Visit: Yes Status: Acute Plan: AM NAUSEA STOP SENNA WATCH SS. (7) Tachycardia Current Visit: Yes Status: Chronic Plan: ORTHOSTASIS DO ACTH STIM TEST IN AM
--- NOTE | 2023-09-19 00:37 | PN ---
Date of Progress Note: 09/18/2023 Time Of Service: 1:30 p.m. Subjective: Mr. De Anda is resting in bed. Did report some nausea today and he said Dr. Vasquez did st op one of medications that possibly may be contributing to nausea. He does have now on board, Zofran 4 mg 4-6 hours as needed. No other complaints. Review of Systems: Again, nausea and some vomiting, but no diarrhea. No other issues. He says the pain in the feet is still there, but he is able to do more transferring and ambulating. Physical Examination: Vital Signs: Blood pressure 134/63, pulse of 102, respiratory rate 18, temperature 97.3, oxygen satu ration 94% on room air. General: Mr. De Anda again is resting in bed. No significant distress. HEENT: Normocephalic, atraumatic. Sclerae anicteric. Oropharynx pink, moist. Extremities: Does have stasis changes as noted from the mid leg downwards. Decreased sensation in s tocking-glove fashion. Laboratory Studies: No new laboratory studies. X-ray/imaging: No new x-rays or imaging. Medications: Medications have been adjusted so that he has Zofran 4 mg every 4 hours for nausea. He will continue all other medications including midodrine for pressure support. He is finishing Flagy l per Dr. Vasquez. Continue with gabapentin 600 mg twice daily, duloxetine for neuropathic pain as wel l. He will have a ciprofloxacin from 09/10 to 09/19. Progress Made With Physical And Occupational Therapy: Today with his physical therapy, he did perfor m rolling left to right/right to left, scooting in bed with min assist. Npu-gi-[id number] transfers done independently. Stand and pivot transfers done independently. Ambulated 45 feet with standby assista nce 3 times, did have again nausea as noted. Occupational therapy, independent with supine to sit at edge of bed demonstrated independent stand pivot transfer from edge of bed to wheelchair. Facilitat ed repeated ofh-yx-[id number] transfers 2 times 5 sets with wheelchair and to increase lower extremity str ength. Mr. De Anda is making good progress overall with physical and occupational therapy, will be ready for discharge this weekend. He may agree to be able to be discharged earlier perhaps or Sunday. Assessment: Mr. De Anda is a 57-year-old patient in rehabilitation unit with subtle pulmonary embolus . He has multiple sclerosis, peripheral neuropathy related to multiple sclerosis, has had risk of DV Ts, which are already there in terms of pulmonary embolus. Also, hypertension and hypotension which is orthostatic requiring pressure support. He has neuropathic pain, potential abdominal infection fo r which he is being treated by Dr. Vasquez. Urinary retention addressed with Flomax. Plan: We will continue physical, occupational, and speech therapy. Continue all medications as note d and I am able to plan for discharge early later on in the week. He will continue therapy via Home Health. TERRA/JOLIE Voice ID: [id number] Report ID: [id number]
[2023-09-19] MEDS: COSYNTROPIN 0.25 MG VIAL IV ONE ×2 (08:15→08:17)
[2023-09-19] MEDS: dexAMETHasone 4 MG TAB PO ONE (11:23)
[2023-09-19] MEDS: ONDANSETRON 4 MG (ODT) TAB PO PRN (14:36)
[2023-09-19] MEDS: dexAMETHasone 4 MG TAB PO SCH (20:00)
--- NOTE | 2023-09-19 20:55 | P.PN ---
Subjective Date of Service: 09/19/23 Chief Complaint: DOING BETTER. NO NAUSEA TODAY. Subjective: Improving ADRIANA IS STABLE NO NAUSEA TODAY NO UTI, NO BURNING , NO FEVER. THERE IS NO NAUSEA TODAY. HE HAS L LATERAL ELBOW PAIN. Review of Systems 10-point ROS is otherwise unremarkable Physical Examination - Vital Signs Temperature: 97.4 F Blood Pressure: 111/54 Pulse: 111 Respirations: 17 Pulse Ox (%): 94 - Physical Exam General: Alert, Mild distress, Obese HEENT: Atraumatic, PERRLA, EOMI Neck: Supple, JVD not distended Respiratory: Clear to auscultation bilaterally, Normal air movement Cardiovascular: Regular rate/rhythm, Normal S1 S2 Gastrointestinal: Normal bowel sounds, No tenderness Musculoskeletal: No tenderness, Other (LATERAL ELBOW TENDER.) Integumentary: No rashes Neurological: Normal speech, Normal tone, Normal affect Lymphatics: No axilla or inguinal lymphadenopathy - Studies Medications List Reviewed: Yes Assessment And Plan - Current Problems (Diagnosis) (1) Abdominal wall abscess at site of surgical wound Current Visit: Yes Status: Acute Plan: start oral abx as above. He may not have much issue here as he does not have much ss but on admission to ER he did have pain an d malaise. ORAL ABX STABLE. CONT PT (2) Saddle pulmonary embolus Current Visit: Yes Status: Acute Plan: startted ELiquis He should be on it now lifetime as he is an MS patient with limited mobility. CONTINEU ELIQUIS CONT OT AND PT. (3) Multiple sclerosis Current Visit: Yes Status: Chronic (4) Abnormal urinalysis Current Visit: Yes Status: Acute Plan: HE HAS NO SS DO ST CATH ASYMPTOMATIC UA DOES NOT NEED RX HE HAS NO SYMPTOMS AND SO PER GUIDELINE WE SHOULD AVOID ANY MORE ANTIBIOTICS. HE IS ALREADY ON TWO ANTIBIOTICS FOR GALL BLADDER FOSSA POTENTIAL ABSCESS. (5) Orthostatic hypotension Current Visit: Yes Status: Chronic Plan: WITH MS THIS IS IS A COMMON ISSUE. WE WILL STOP LOSARTAN BP IS LOW DOWN TO82 ON STANDING. SUPINE HTN MAY BECOME AN ISSUE WITH PROMATINE. (6) Nausea Current Visit: Yes Status: Acute Plan: AM NAUSEA STOP SENNA WATCH SS. (7) Tachycardia Current Visit: Yes Status: Chronic Plan: ORTHOSTASIS DO ACTH STIM TEST IN AM (8) Lateral epicondylitis Current Visit: Yes Status: Acute Plan: STEROIDS ORALLY. WILL FU.
--- NOTE | 2023-09-19 21:48 | PN ---
Date of Progress Note: 09/18/2023 Time Of Service: 1:15 p.m. Subjective: Mr. De Anda is in bed between therapy sessions. Did report slight improvement in the jonathan sea, but still present, especially once he sits up. Again, Dr. Vasquez is following. He did make some medication adjustments. The patient has been receiving Zofran 4 mg every 4 to 6 hours and again it does helps minimally, so that will be increased to 8 mg every 4 to 6 hours. Review of Systems: Some nausea and vomiting, which are slightly better. No diarrhea. No new additional complaints. Hi s foot pain from neuropathy is slightly better. He does do a little bit more in terms of his therapy without as much difficulty. Physical Examination: Vital Signs: Blood pressure 118/56, pulse 98, respiratory rate 16, temperature 97.3, oxygen saturati on 95% on room air. General: Mr. De Anda again is lying in bed. He is in no significant distress. HEENT: He is normocephalic, atraumatic. Sclerae anicteric. Oropharynx pink and moist. Neck: Supple. Chest: Clear. Heart: Regular. Extremities: No significant clubbing or cyanosis, but stasis changes noted in the legs bilaterally. Neurological: In terms of focal deficits, no focal neurological deficits. His medications have been reviewed and noted. He did receive some dexamethasone actually 4 mg twice daily after he did complain of some pain in the lateral left elbow. The pain was aggravated when he elevated his left wrist and the left index finger, potentially related to him using the wheelchair to mobilize and holding onto the rolling walker, potentially a left radial tunnel syndrome with inflamm ation along the tendon and the radial nerve in the radial groove in the left elbow. In addition, he will finish his ciprofloxacin tomorrow and continue with duloxetine for depression, gabapentin for ne uropathic pain. Continue with protein supplementation, milk of magnesia for stool softening. Contin ue midodrine for pressor support related autonomic dysfunction. Flomax for urinary retention, zolpid em for insomnia. Laboratory Studies: He has no new laboratory studies. X-ray/imaging: No new x-rays or imaging. Progress Made With Physical And Occupational Therapy: Today, with physical therapy, he was able to a mbulate 40 feet 5 times independently. Emphasis on upright posture. He, however, only able to do sh ort distances because of the nausea as he straightened up. He did rolling tcic-ay-faerg, scooting in dependently while in bed. Supine to sit transfers done independently. Multiple sit to stand transfe rs done independently. Stand to pivot transfers done independently. Regarding occupational therapy, independent with grooming, oral hygiene. Independent with bed mobili zation. Independent with kde-eu-fcydj transfer and transfer from edge of bed to wheelchair with a Ro llator. The patient is actually happy about his discharge, which will be tomorrow. Mr. De Anda is again making very good progress so far. Did have some pain in the left elbow, which is likely bursitis, tendonitis, and radial tunnel syndrome. He has of course multiple sclerosis and pe ripheral neuropathy along with his saddle pulmonary embolus, for which he is recovering well. He has insomnia, urinary retention, autonomic dysfunction. Fluid collection in the abdominal region, felt to be an abscess or infectious; however, recently on 2 antibiotics per primary care physician. He ramos s Eliquis 5 mg twice daily for anticoagulation for addressing DVT prophylaxis and Cymbalta for depres lakeisha along with gabapentin for neuropathic pain. He is also on Flagyl as appropriate. Comorbidities Impacting Rehabilitation: At this point, the left elbow pain, which is more recent, pe rhaps related to mobilizing with a wheelchair and a rolling walker, is being addressed with the stero ids and adjustments in gabapentin and the patch in that area as appropriate. Please note, he will be dis charged in the morning. TERRA/JOLIE Voice ID: [id number] Report ID: [id number]
[2023-09-20 07:19] LABS: Absolute Lymphocytes (CBC) 0.8 K/uL (0.7-4.9); Absolute Monocytes 0.5 K/uL (0.1-1.3); Absolute Neutrophil 14.6 K/uL (1.8-8.0); Basophils % 0.2 % (0-1.3); Hemoglobin 12.2 g/dL (13.6-17.9); MCH 28.2 pg (27.0-35.0); MCHC 32.1 g/dL (32.0-36.0); MPV 8.6 fL (7.6-11.3); Neutrophils % 91.8 % (41.7-73.7); Platelets 429 thou/uL (152-406); RBC Red Blood Cell Count 4.32 M/uL (4.33-5.43); Red Cell Distribution Width 15.6 % (12.1-15.2)
[2023-09-20 07:35] LABS: Albumin 2.5 g/dL (3.4-5.0); Anion Gap 7.2 mEq/L (5.0-15.0); Magnesium 2.3 mg/dL (1.6-2.4); Potassium 4.2 mEq/L (3.5-5.1); Prealbumin 13.2 mg/dL (20-40)
[2023-09-20 09:39] VITALS: BP 140/61; TEMP 96.8
[2023-09-20 09:43] VITALS: O2SAT 92
[2023-09-20 10:17] VITALS: BMI 54.8
[2023-09-20 13:13] LABS: Blood Morphology Comment NOT SEEN (NOT SEEN); Platelet Estimate ADEQ; White Blood Cell Scan OK (OK)
--- NOTE | 2023-09-20 21:34 | P.PN ---
Subjective Date of Service: 09/20/23 Chief Complaint: DOING BETTER. NO NAUSEA TODAY. Subjective: Improving ADRIANA IS STABLE NO NAUSEA TODAY NO UTI, NO BURNING , NO FEVER. THERE IS NO NAUSEA TODAY. HE HAS L LATERAL ELBOW PAIN. HIS ELBOW IS LOT BETTER. Physical Examination - Vital Signs Temperature: 96.8 F Blood Pressure: 140/61 Pulse: 103 Respirations: 18 Pulse Ox (%): 92 - Physical Exam General: Mild distress, Obese HEENT: Atraumatic, PERRLA, EOMI Neck: Supple, JVD not distended Respiratory: Clear to auscultation bilaterally, Normal air movement Cardiovascular: Regular rate/rhythm, Normal S1 S2 Gastrointestinal: Normal bowel sounds, No tenderness Musculoskeletal: No tenderness Integumentary: No rashes Neurological: Normal speech, Normal tone, Normal affect Lymphatics: No axilla or inguinal lymphadenopathy - Studies Laboratory Data (last 24 hrs) 09/20/23 09/20/23 06:17 06:17 WBC 15.90 H Hgb 12.2 L Hct 38.0 L Plt Count 429 H Sodium 136 Potassium 4.2 BUN 17 Creatinine 1.17 Glucose 168 H Magnesium 2.3 Medications List Reviewed: Yes Assessment And Plan - Current Problems (Diagnosis) (1) Abdominal wall abscess at site of surgical wound Status: Acute Plan: start oral abx as above. He may not have much issue here as he does not have much ss but on admission to ER he did have pain an d malaise. ORAL ABX STABLE. CONT PT (2) Saddle pulmonary embolus Status: Acute Plan: startted ELiquis He should be on it now lifetime as he is an MS patient with limited mobility. CONTINEU ELIQUIS CONT OT AND PT. (3) Multiple sclerosis Status: Chronic (4) Abnormal urinalysis Status: Acute Plan: HE HAS NO SS DO ST CATH ASYMPTOMATIC UA DOES NOT NEED RX HE HAS NO SYMPTOMS AND SO PER GUIDELINE WE SHOULD AVOID ANY MORE ANTIBIOTICS. HE IS ALREADY ON TWO ANTIBIOTICS FOR GALL BLADDER FOSSA POTENTIAL ABSCESS. (5) Orthostatic hypotension Status: Chronic Plan: WITH MS THIS IS IS A COMMON ISSUE. WE WILL STOP LOSARTAN BP IS LOW DOWN TO82 ON STANDING. SUPINE HTN MAY BECOME AN ISSUE WITH PROMATINE. (6) Nausea Status: Acute Plan: AM NAUSEA STOP SENNA WATCH SS. (7) Tachycardia Status: Chronic Plan: ORTHOSTASIS DO ACTH STIM TEST IN AM (8) Lateral epicondylitis Status: Acute Plan: STEROIDS ORALLY. WILL FU. RESOLVED
== END 2023-09-20 10:45 | disposition home or self-care (01) | DRG 947 ==
LOC: 5TH 22:37
PROVIDERS: ADMIT Psychiatry & Neurology Neurology with Special Qualifications in Child Neurology; ATTEND Psychiatry & Neurology Neurology with Special Qualifications in Child Neurology
PROC: 02HV33Z Insertion of Infusion Device into Superior Vena Cava, Percutaneous Approach (ICD-10-PCS; principal; 2023-09-11)
DX: R53.81 Other malaise (principal); I26.92 Saddle embolus of pulmonary artery without acute cor pulmonale; Z68.43 Body mass index [BMI] 50.0-59.9, adult; T81.41XD Infection following a procedure, superficial incisional surgical site, subsequent encounter; M77.10 Lateral epicondylitis, unspecified elbow; R09.02 Hypoxemia; R00.0 Tachycardia, unspecified; R33.9 Retention of urine, unspecified; I95.1 Orthostatic hypotension; K59.00 Constipation, unspecified; M62.838 Other muscle spasm; D75.839 Thrombocytosis, unspecified; I10 Essential (primary) hypertension; G35 Multiple sclerosis; E66.01 Morbid (severe) obesity due to excess calories; G62.9 Polyneuropathy, unspecified; F32.A Depression, unspecified; G47.00 Insomnia, unspecified
CPT/HCPCS: 36415; 80048; 81001; 82024; 82040; 82533; 83735; 84134; 85025; 87077; 87086; 87088; 87186; 97010; 97110; 97116; 97163; 97165; 97530; 97542; A4216; J0834; J7030; J8540; Q0162

== ENCOUNTER 2024-11-12 10:21 | Emergency (ER) | payer BC ==
[2024-11-12 11:33] LABS: Absolute Lymphocytes (CBC) 0.9 K/uL (0.7-4.9); Hematocrit 43.7 % (39.6-49.0); Hemoglobin 14.6 g/dL (13.6-17.9); MCH 31.2 pg (27.0-35.0); MCHC 33.4 g/dL (32.0-36.0); MCV 93.5 fL (80-100); MPV 7.9 fL (7.6-11.3); Nucleated RBC Absolute Count 0.0 (0-0); Nucleated Red Blood Cells % 0.1 % (0-0); RBC Red Blood Cell Count 4.67 M/uL (4.33-5.43); White Blood Count 13.00 thou/uL (4.3-10.9)
[2024-11-12 11:48] LABS: PT Prothrombin Time 16.4 SECONDS (10-13.0); PTT, Activated Partial Thromb 28.9 SECONDS (27.2-37.4); Protime INR 1.47
[2024-11-12 11:55] LABS: Albumin 2.4 g/dL (3.4-5.0); Albumin/Globulin Ratio 0.4 (1.1-1.8); Alkaline Phosphatase 134 U/L (45-117); Anion Gap 11.2 mEq/L (5.0-15.0); BUN Blood Urea Nitrogen 13 mg/dL (7-18); Globulin 5.6 g/dL (2.3-3.5); Glucose Level 113 mg/dL (74-106); Potassium 3.2 mEq/L (3.5-5.1); Troponin High Sensitivity 3.7 pg/mL (<58.9)
[2024-11-12 12:02] LABS: ALT/SGPT < 14 U/L (16-61); AST/SGOT < 10 U/L (15-37)
--- NOTE | 2024-11-12 13:07 | RAD REPORT ---
EXAMINATION: CT Abdomen Pelvis W Contrast CLINICAL INDICATION: Male, 59 years old. ABD PAIN TECHNIQUE: CT abdomen and pelvis was performed, after the administration of IV contrast, as per [facility]. Axial, sagittal and coronal reconstructions were obtained. One or more of the following dose reduction techniques were used: Automated exposure control, adjustment of the mA and k V according to patient size, and iterative reconstruction. Unless otherwise specified, incidental findings do not require dedicated imaging follow-up. COMPARISON: No prior exam. FINDINGS: LOWER CHEST: The visualized lung bases are clear. LIVER: Normal in size and contour. No focal lesion. BILIARY SYSTEM: Status post cholecystectomy. SPLEEN: Normal size. No focal lesion. PANCREAS: No mass, ductal dilation, or melani-pancreatic fluid. ADRENALS: Normal; no mass. KIDNEYS: Normal size and contour. Nonobstructing right renal 2 mm calculus. No hydronephrosis. URINARY BLADDER: Unremarkable. GASTROINTESTINAL TRACT: Sequelae of left band and sacral neurostimulator in place. No evidence of adrienne e air, significant intra-abdominal free fluid, bowel obstruction or abscess. APPENDIX: Normal appendix. LYMPH NODES: No lymphadenopathy. MUSCULOSKELETAL: No acute or suspicious osseous abnormality. ADDITIONAL FINDINGS: Lobulated marginally enhancing fluid collection with septations along the right posterior flank muscles, abutting the inferior margin of the right 11th rib, measuring 10.0 x 7.9 cm in greatest axial dimensions and 8.1 cm in greatest CC dimension. Adjacent poorly loculated 4.0 x 3.3 cm fluid more superior and anterior to this, abutting the posterior perinephric fascia near the upper pole An adjacent lobulated deeper collection more superiorly abutting the inferior posterior li sebastian capsule. This measures 8.9 x 3.1 cm in greatest axial dimensions, and 3.4 cm in craniocaudal extent. Along the anterior aspect of the cholecystectomy bed, measuring 4.9 x 1.8 x 3.5 cm in greates t AP, transverse, and CC dimension. IMPRESSION: Lobulated marginally enhancing fluid collections, largest along the right posterior abdominal wall me asuring up to 10 cm, 8.9 cm elongated juxta capsular collection along the right liver lobe posteriorly and inferiorly, and 4.9 cm anterior collection along the cholecystectomy bed. Lobulated p oorly localized collection or phlegmon along the posterior perinephric fascia measuring up to 4 cm.. Findings are concerning for abscess formation, extending from the cholecystectomy bed. Anterior wedge compression deformities with disc space collapse and sclerosis involving T10-T12 verte bral bodies, without significant prevertebral or paraspinous soft tissue swelling. Findings could relate to sequelae of prior trauma or discitis/osteomyelitis. Nonobstructing right renal 2 mm calculus. THIS REPORT CONTAINS FINDINGS THAT MAY BE CRITICAL TO PATIENT CARE. The findings were verbally commun icated via telephone to GEOVANY Anderson on 11/12/2024 12:54 PM.
[2024-11-12] MEDS ORDERED: NA CHLORIDE 0.9% 1,000 ML ONE (13:48)
[2024-11-12] MEDS ORDERED: NA CHLORIDE 0.9% 100 ML ONE (13:48)
[2024-11-12] MEDS ORDERED: PIPERACIL/TAZO 3.375 GM VIAL IV ONE (13:48)
--- NOTE | 2024-11-12 13:52 | ER ---
Nurse's Notes [facility] Name: Adin De Anda Age: 59 yrs Sex: Male : 1965 Arrival Date: 11/12/2024 Time: 10:21 Bed 24 Private MD: Diagnosis: Weakness;Syncope Near;multiple fluid collections in abdomen Presentation: 11/12 10:31 Chief complaint: Patient states: N/V, STOMACH BURNING AND FEELING EXTREMELY WEAK FOR dd2 ABOUT 2 WEEKS BUT HAS WORSENED PAST 2 DAYS AND REPORTS HE ALMOST PASSED OUT TWICE YSTERDAY. Coronavirus screen: At this time, the client does not indicate any symptoms associated with coronavirus-19. Ebola Screen: No symptoms or risks identified at this time. Initial Sepsis Screen: Does the patient meet any 2 criteria? No. Patient's initial sepsis screen is negative. Does the patient have a suspected source of infection? No. Patient's initial sepsis screen is negative. Risk Assessment: Do you want to hurt yourself or someone else? Patient reports no desire to harm self or others. Onset of symptoms is unknown. 10:31 Method Of Arrival: Wheelchair dd2 10:31 Acuity: PETR 3 dd2 Triage Assessment: 10:35 General: Appears uncomfortable, Behavior is calm, cooperative, appropriate for age. dd2 Pain: Complains of pain in abdomen Pain currently is 3 out of 10 on a pain scale. Quality of pain is described as burning. GI: Reports lower abdominal pain, upper abdominal pain, nausea, vomiting. Historical: - Allergies: 10:35 No Known Allergies; dd2 - PMHx: 10:35 Multiple Sclerosis; dd2 - PSHx: 10:35 Cholecystectomy; BLADDER STIMULATOR SX; dd2 - Immunization history:: Adult Immunizations up to date. - Infectious Disease History:: Denies. - Social history:: Smoking status: Patient denies any tobacco usage or history of. Screenin:30 Abuse screen: Denies threats or abuse. Denies injuries from another. Nutritional rg5 screening: On low fat/low cholesterol diet. Tuberculosis screening: No symptoms or risk factors identified. 15:49 [facility] ED Fall Risk Assessment (Adult) History of falling in the last 3 months, rg5 including since admission. Assessment: 12:37 General: Appears in no apparent distress. Behavior is calm, cooperative, appropriate rg5 for age. Neuro: Level of Consciousness is awake, alert, obeys commands, Oriented to person, place, time, situation. Cardiovascular: Patient's skin is warm and dry. Respiratory: Airway is patent Trachea midline. GI: Abdomen is round obese. : No signs and/or symptoms were reported regarding the genitourinary system. EENT: No signs and/or symptoms were reported regarding the EENT system. Derm: Skin is intact, Skin is dry, Skin is normal. Musculoskeletal: Circulation, motion, and sensation intact. Range of motion: intact in all extremities. 13:30 Reassessment: Patient and/or family updated on plan of care and expected duration. Pain rg5 level reassessed. Patient is alert, oriented x 3, equal unlabored respirations, skin warm/dry/pink. 14:35 Reassessment: No changes from previously documented assessment. Patient and/or family rg5 updated on plan of care and expected duration. Pain level reassessed. Patient is alert, oriented x 3, equal unlabored respirations, skin warm/dry/pink. 15:48 Reassessment: No changes from previously documented assessment. Patient and/or family rg5 updated on plan of care and expected duration. Pain level reassessed. Patient is alert, oriented x 3, equal unlabored respirations, skin warm/dry/pink. 16:16 Reassessment: Patient and/or family updated on plan of care and expected duration. Pain rg5 level reassessed. Patient is alert, oriented x 3, equal unlabored respirations, skin warm/dry/pink. Vital Signs: 10:31 BP 111 / 97; Pulse 119; Resp 17; Temp 97.3; Pulse Ox 98% on R/A; Weight 124.74 kg; dd2 Height 6 ft. 3 in. ; Pain 3/10; 12:35 BP 159 / 93; Pulse 97; Resp 18; Pulse Ox 97% ; rg5 13:30 BP 138 / 103; Pulse 98; Resp 17; Pulse Ox 95% ; Pain 0/10; rg5 14:20 BP 141 / 91; Pulse 93; Resp 18; Pulse Ox 97% ; Pain 0/10; rg5 15:15 BP 137 / 94; Pulse 88; Pulse Ox 94% ; Pain 0/10; rg5 16:15 BP 143 / 95; Pulse 86; Resp 18; Pulse Ox 95% ; Pain 0/10; rg5 17:20 BP 140 / 84; Pulse 88; Resp 18; Pulse Ox 95% ; Pain 0/10; rg5 10:31 Body Mass Index 34.37 (124.74 kg, 190.5 cm) dd2 10:31 Pain Scale: Adult dd2 13:30 Pain Scale: Adult rg5 14:20 Pain Scale: Adult rg5 15:15 Pain Scale: Adult rg5 16:15 Pain Scale: Adult rg5 17:20 Pain Scale: Adult rg5 ED Course: 10:25 Patient arrived in ED. cj3 10:29 Sue Cuello, [facility] kb 10:29 Rashi Ham MD is Attending Physician. kb 10:35 Triage completed. dd2 10:35 Arm band placed on right wrist. dd2 11:07 Patient placed in an exam room, on a stretcher. ll1 11:25 Initial lab(s) drawn, by me, sent to lab. First set of blood cultures drawn by me. bc6 11:29 Troponin High Sensitivity Sent. bc6 11:29 Blood Culture Adult (2) Sent. bc6 11:29 CBC with Diff Sent. bc6 11:29 CMP Sent. bc6 11:29 Lactate w/ 2H reflex if indic. Sent. bc6 11:29 Protime (+inr) Sent. bc6 11:29 Ptt, Activated Sent. bc6 11:29 Inserted saline lock: 20 gauge in right forearm, using aseptic technique. Blood bc6 collected. Flushed with 10 mL NS. 11:39 EKG done, by hvac service tech. reviewed by Sue MCKEON. ts3 12:10 Patient has correct armband on for positive identification. Bed in low position. Call rg5 light in reach. Side rails up X2. Adult w/ patient. Door closed. Noise minimized. Warm blanket given. 12:30 Provided Education on: needs for transfer. rg5 12:32 CT Abd/Pelvis - IV Contrast Only In Process Unspecified. EDMS 12:34 Patrick Coughlin, RN is Primary Nurse. rg5 12:37 No provider procedures requiring assistance completed. rg5 13:35 initiated transfer to [facility]. bd 18:02 pt accepted in transfer to [facility] by dr Orlando admin approval given by Lisandra bd D pt [facility]. Administered Medications: 13:54 Drug: Piperacillin-Tazobactam IVPB 3.375 grams IVPB once over 60 mins; (mix in NS 100 rg5 mL) Route: IVPB; Infused Over: 60 mins; Site: right forearm; 15:51 Follow up: IV Status: Completed infusion; IV Intake: 1445ml rg5 13:55 Drug: NS 0.9% IV 1000 ml IV at 1000 ml once; to be given as a bolus over 60 minutes rg5 Route: IV; Rate: 1000 ml; Site: right forearm; 14:49 Follow up: IV Status: Completed infusion; IV Intake: 1000ml rg5 Medication: 12:37 VIS not applicable for this client. rg5 Intake: 14:49 IV: 1000ml; Total: 1000ml. rg5 15:51 IV: 1445ml; Total: 2445ml. rg5 Outcome: 13:51 ER care complete, transfer ordered by . kb 18:52 Patient left the ED. ll1 Signatures: Dispatcher [employer] EDMS Sue Cuello, COMMERCIAL SINGER-Arlette COMMERCIAL SINGER-Ckb Salud Roy Lynsay, RN RN ll1 Anamika Mclean bc6 Patrick Coughlin RN RN rg5 JANA NIELSEN RN RN dd2 Anjelica Zelaya 3 Gladys Chan 3
--- NOTE | 2024-11-12 13:52 | EDPHYS ---
Physician Documentation [facility] Name: Adin De Anda Age: 59 yrs Sex: Male : 1965 Arrival Date: 11/12/2024 Time: 10:21 Bed 24 Private MD: JEREMY Physician Rashi Ham HPI: 11/12 13:40 This 59 yrs old Male presents to ER via Wheelchair with complaints of Nausea, Fatigue, kb Lightheaded, Dizziness. 13:40 Patient is a 59-year-old male who presents for nausea, vomiting, weakness and abdominal kb pain that has been going on for 2 to 4 weeks. States he had 2 episodes of near syncope yesterday so that is what brought him in today. Reports he had a bladder stimulator placed a couple of weeks ago at [facility]. Historical: - Allergies: 10:35 No Known Allergies; dd2 - PMHx: 10:35 Multiple Sclerosis; dd2 - PSHx: 10:35 Cholecystectomy; BLADDER STIMULATOR SX; dd2 - Immunization history:: Adult Immunizations up to date. - Infectious Disease History:: Denies. - Social history:: Smoking status: Patient denies any tobacco usage or history of. ROS: 13:40 Constitutional: As per HPI kb Exam: 13:40 Constitutional: This is a well developed, well nourished patient who is awake, alert, kb and in no acute distress. Head/Face: Normocephalic, atraumatic. ENT: Moist Mucous membranes Cardiovascular: Regular rate Respiratory: Respirations even and unlabored. No increased work of breathing. Talking in full sentences Skin: Warm, dry with normal turgor. Normal color. MS/ Extremity: Pulses equal, no cyanosis. Neurovascular intact. Full, normal range of motion. Neuro: Awake and alert, GCS 15, oriented to person, place, time, and situation. 13:40 Abdomen/GI: Inspection: obese Bowel sounds: normal, Palpation: soft, in all quadrants, moderate abdominal tenderness, in all quadrants, 13:40 Back: Healing surgical incision to lower back without erythema, swelling or drainage, 14:26 ECG was reviewed by the Attending Physician. kb Vital Signs: 10:31 BP 111 / 97; Pulse 119; Resp 17; Temp 97.3; Pulse Ox 98% on R/A; Weight 124.74 kg; dd2 Height 6 ft. 3 in. ; Pain 3/10; 12:35 BP 159 / 93; Pulse 97; Resp 18; Pulse Ox 97% ; rg5 13:30 BP 138 / 103; Pulse 98; Resp 17; Pulse Ox 95% ; Pain 0/10; rg5 14:20 BP 141 / 91; Pulse 93; Resp 18; Pulse Ox 97% ; Pain 0/10; rg5 15:15 BP 137 / 94; Pulse 88; Pulse Ox 94% ; Pain 0/10; rg5 16:15 BP 143 / 95; Pulse 86; Resp 18; Pulse Ox 95% ; Pain 0/10; rg5 17:20 BP 140 / 84; Pulse 88; Resp 18; Pulse Ox 95% ; Pain 0/10; rg5 10:31 Body Mass Index 34.37 (124.74 kg, 190.5 cm) dd2 10:31 Pain Scale: Adult dd2 13:30 Pain Scale: Adult rg5 14:20 Pain Scale: Adult rg5 15:15 Pain Scale: Adult rg5 16:15 Pain Scale: Adult rg5 17:20 Pain Scale: Adult rg5 MDM: 10:29 Medical Screening Exam initiated kb 13:41 Differential diagnosis: Nonspecific abd pain, gastritis, Dehydration, abnormal kb electrolytes. Data reviewed: vital signs, nurses notes. Consideration of Admission/Observation Escalation of care including admission/observation considered. patient will be transferred to [facility]. Management of patient was discussed with the following: Video Production Specialist: Dr. Alonzo recommends transfer back to [facility] . Historians other than the Patient: Family Member: Family. Care significantly affected by the following chronic conditions: MS. Counseling: I had a detailed discussion with the patient and/or guardian regarding the historical points, exam findings, and any diagnostic results supporting the discharge/admit diagnosis, lab results, radiology results, the need to transfer to another facility, for higher level of care, [facility] does not immediately have the required specialist. 14:24 Management of patient was discussed with the following: Dr Orlando accepts pt for kb transfer to [facility]. 11/12 10:38 Order name: Blood Culture Adult (2) 11/12 10:38 Order name: CBC with Diff; Complete Time: 11:39 11/12 10:38 Order name: CMP; Complete Time: 12:19 kb 11/12 10:38 Order name: Lactate w/ 2H reflex if indic.; Complete Time: 12:19 kb 11/12 10:38 Order name: Protime (+inr); Complete Time: 11:49 kb 11/12 10:38 Order name: Ptt, Activated; Complete Time: 11:49 kb 11/12 10:38 Order name: Troponin High Sensitivity; Complete Time: 12:19 kb 11/12 13:43 Order name: UA Rfx Jacky Cult if indicated; Complete Time: 14:36 kb 11/12 10:38 Order name: CT Abd/Pelvis - IV Contrast Only; Complete Time: 13:09 kb 11/12 10:38 Order name: EKG; Complete Time: 10:39 kb 11/12 10:38 Order name: Accucheck; Complete Time: 12:35 kb 11/12 10:38 Order name: Cardiac monitoring; Complete Time: 11:39 kb 11/12 10:38 Order name: EKG - Nurse/Tech; Complete Time: 11:39 kb 11/12 10:38 Order name: IV Saline Lock - Large Bore; Complete Time: 11:29 kb 11/12 10:38 Order name: Labs collected and sent; Complete Time: 11:29 kb 11/12 10:38 Order name: O2 Per Protocol; Complete Time: 12:35 kb 11/12 10:38 Order name: O2 Sat Monitoring; Complete Time: 11:39 kb 11/12 10:38 Order name: Vital Signs; Complete Time: 12:35 kb EC:26 Rate is 106 beats/min. Rhythm is regular. QRS [place] is Normal. MS interval is normal at kb 142 msec. QRS interval is normal at 94 msec. QT interval is normal at 459 msec. Administered Medications: 13:54 Drug: Piperacillin-Tazobactam IVPB 3.375 grams IVPB once over 60 mins; (mix in NS 100 rg5 mL) Route: IVPB; Infused Over: 60 mins; Site: right forearm; 15:51 Follow up: IV Status: Completed infusion; IV Intake: 1445ml rg5 13:55 Drug: NS 0.9% IV 1000 ml IV at 1000 ml once; to be given as a bolus over 60 minutes rg5 Route: IV; Rate: 1000 ml; Site: right forearm; 14:49 Follow up: IV Status: Completed infusion; IV Intake: 1000ml rg5 Disposition Summary: 11/12/24 13:51 Transfer Ordered Notes: Transfer Location: [facility] kb Reason: Higher level of care kb Condition: Stable kb Problem: new kb Symptoms: are unchanged kb Accepting Physician: Dr Orlando(11/12/24 18:52) ll1 Diagnosis - Weakness kb - Syncope Near kb - multiple fluid collections in abdomen kb Forms: - Medication Reconciliation Form kb - SBAR form kb Signatures: Dispatcher [employer] EDMS Sue Cuello, TETRYL BOILING TUB OPERATOR-C TETRYL BOILING TUB OPERATOR-Stephen Ellis RN RN ll1 Patrick Coughlin RN RN rg5 JANA NIELSEN RN RN dd2 Corrections: (The following items were deleted from the chart) 10:39 10:39 Abdomen Pelvis W Con+CT.RAD.BRZ ordered. EDIL EDMS 14:24 13:51 Dr bravo kb 18:52 14:24 Dr Orlando kb ll1
[2024-11-12 14:31] LABS: Urine Microscopic Reflex YN NO UMIC
[2024-11-12 19:18] VITALS: TEMP 97.3
[2024-11-12 19:27] VITALS: O2SAT 95
[2024-11-12 19:29] VITALS: BP 140/84
== END 2024-11-12 18:52 | disposition short-term general hospital (02) ==
LOC: ER 10:21
DX: R53.1 Weakness (principal); R55 Syncope and collapse; R18.8 Other ascites
CPT/HCPCS: 96365; 93005; 87040 ×2; 85025; 36415; 85610; 83605; 85730; 81003; 84484; 80053; 74177; 99284; 96366; Q9967; J2543; J7030